=== PATIENT | male | born 1950 | race Caucasian/White ===

== ENCOUNTER 2021-08-15 18:38 | Emergency (ER) | payer MEDICARE ==
[2021-08-15] MEDS ORDERED: Bacitracin Oint 1 GM U/D Packet TOP ONE (18:45)
--- NOTE | 2021-08-15 20:10 | EDM.PDOC ---
ED HPI GENERAL MEDICAL PROBLEM - General Chief Complaint: Skin Complaint Stated Complaint: FISHHOOK L THUMB Time Seen by Provider: 08/15/21 18:44 Source of Information: Reports: Patient History Limitations: Reports: No Limitations - History of Present Illness INITIAL COMMENTS - FREE TEXT/NARRATIVE: chief complaint: fish hook to the left thumb This is a 70 year old male who was out fishing - about 2 hours ago (6:45PM) had a fish hook stuck in the nail of the left thumb. unable to remove - here to have removal. Tdap not due for another 3 years. Onset: Today Onset Date: 08/15/21 Onset Time: 18:45 Duration: Hour(s): Location: Reports: Upper Extremity, Left (left thumb) Quality: Reports: Ache, Burning Improves with: Reports: Immobilization Worsens with: Reports: Movement Associated Symptoms: Reports: No Other Symptoms - Related Data Allergies Allergy/AdvReac Type Severity Reaction Status Date / Time Penicillins Allergy Rash Verified 08/15/21 19:46 Home Meds: Home Meds Triamterene/Hydrochlorothiazid [Triamterene-HCTZ 37.5-25 MG] 1 tab PO DAILY 08/15/21 [History] Past Medical History Genitourinary History: Reports: Renal Calculus - Past Surgical History HEENT Surgical History: Reports: Eye Surgery GI Surgical History: Reports: Bariatric Procedure Social & Family History - Tobacco Use Tobacco Use Status *Q: Never Tobacco User ED ROS GENERAL - Review of Systems Review Of Systems: See Below Constitutional: Reports: No Symptoms Skin: Reports: Other (fish hook to left thumb) ED EXAM, SKIN/RASH Exam: See Below Exam Limited By: No Limitations General Appearance: Alert, WD/WN, No Apparent Distress Extremities: Other (left thumb with fish hook tip of the nail punctured.) Neurological: Alert, Normal Cognition Psychiatric: Normal Affect, Normal Mood Skin: Warm, Other (fish hook left thumb nail) Location, Skin: Other (left thumb nail) Characteristics: Other (F. body) Associated features: Tenderness Lymphatic: No Adenopathy ED SKIN PROCEDURES - Foreign Body Removal Consent Obtained:: Patient Performing Doctor:: Jodi Quinonez Anesthesia Type: Local (1% lidocaine without eppi) Findings:: verbal consent given cleansed saline injected with Lidocaine 1% without eppi thumb is now pain free, gently push prong thru the skin and clipped washed with soap and water bandage applied monitor for signs of infection Course - Vital Signs Last Recorded V/S: Last Vital Signs Temp 96.8 F L 08/15/21 19:50 Pulse 64 08/15/21 19:50 Resp 14 08/15/21 19:50 BP 171/76 H 08/15/21 19:50 Pulse Ox 95 08/15/21 19:50 - Orders/Labs/Meds Meds: Medications Discontinued Medications Generic Name Dose Route Start Last Admin Trade Name Rowdy PRN Reason Stop Dose Admin Bacitracin 1 dose 08/15/21 18:45 Bacitracin Oint 1 Gm U/D Packet TOP 08/15/21 18:46 ONETIME ONE Lidocaine HCl 5 ml 08/15/21 18:45 Lidocaine 1% 5 Ml Sdv INJECT 08/15/21 18:46 ONETIME ONE Departure - Departure Time of Disposition: 20:05 Disposition: Home, Self-Care 01 Condition: Good Clinical Impression: Puncture wound Fish hook injury of left thumb Qualifiers: Encounter type: initial encounter Qualified Code(s): S69.92XA - Unspecified injury of left wrist, hand and finger(s), initial encounter - Discharge Information *PRESCRIPTION DRUG MONITORING PROGRAM REVIEWED*: Not Applicable *COPY OF PRESCRIPTION DRUG MONITORING REPORT IN PATIENT ALESSANDRA: Not Applicable Instructions: Puncture Wound, [id number] Referrals: Armen Pearl MD [Primary Care Provider] - Forms: ED Department Discharge Care Plan Goals: Fish hook left thumb, removal -daily bandage changes for 3 days -apply antibiotic ointment to wound x 3 days -monitor for signs of infection -return to ER for any increase pain, redness, swelling, drainage, fever, chills or any concerns. Sepsis Event Note (ED) - Evaluation Sepsis Screening Result: No Definite Risk - Focused Exam Vital Signs: Vital Signs Temp Pulse Resp BP Pulse Ox 08/15/21 19:50 96.8 F L 64 14 171/76 H 95 - Problem List & Annotations (1) Fish hook injury of left thumb SNOMED Code(s): 663301147 Code(s): S69.92XA - UNSP INJURY OF LEFT WRIST, HAND AND FINGER(S), INIT ENCNTR Status: Acute Priority: High Current Visit: Yes Qualifiers: Encounter type: initial encounter Qualified Code(s): S69.92XA - Unspecified injury of left wrist, hand and finger(s), initial encounter (2) Puncture wound SNOMED Code(s): 233373517 Code(s): T14.8XXA - OTHER INJURY OF UNSPECIFIED BODY REGION, INITIAL ENCOUNTER Status: Acute Priority: High Current Visit: Yes - Problem List Review Problem List Initiated/Reviewed/Updated: Yes - Assessment/Plan Plan: Fish hook left thumb, removal -daily bandage changes for 3 days -apply antibiotic ointment to wound x 3 days -monitor for signs of infection -return to ER for any increase pain, redness, swelling, drainage, fever, chills or any concerns.
== END 2021-08-15 20:29 | disposition home or self-care (01) ==
LOC: JP.ED 18:38
DX: S61.042A Puncture wound with foreign body of left thumb without damage to nail, initial encounter (principal); Z88.0 Allergy status to penicillin; W45.8XXA Other foreign body or object entering through skin, initial encounter
CPT/HCPCS: 99283